=== PATIENT | female | born 1975 | race Caucasian/White ===

== ENCOUNTER 2024-04-08 21:04 | Emergency (ER) | payer BC, SELFPAY ==
--- NOTE | ~2024-04-08 | XR_ITS ---
EXAM: XR hand LT min 3V DATE: 04/08/2024 21:56 HISTORY: dog bite, r/o fb/fx. LACERATION TO 5TH METATARSAL . COMPARISON: None available. FINDINGS: Normal mineralization. No fracture or dislocation. No lytic or blastic lesion. Joint space s are maintained. No erosion or periosteal change. Soft tissues within normal limits. IMPRESSION: No acute osseous finding the left hand. No radiopaque foreign body detected. Reviewed, dictated and finalized at location K.
[2024-04-08 21:39] VITALS: BP 140/72; PULSE 68; RESP 15; TEMP 36.5; O2SAT 100
[2024-04-08] MEDS: TETANUS,DIPHTHERIA,AC PERTUSSIS ADULT (0.5 ML) BOOSTRIX IM (22:19)
[2024-04-08] MEDS: HYDROcodone/acetaminophen (*CRX) 5-325 MG TABLET 1 TAB PO (22:19)
[2024-04-08] MEDS: AMOXICILLIN/CLAVULANATE K 875-125 MG TAB 1 TABLET PO (22:19)
--- NOTE | 2024-04-08 22:34 | ED.WOUNDLAC ---
HPI - Wound/Laceration General Chief Complaint: Wound/Laceration Stated Complaint: dog bite Time Seen by Provider: 04/08/24 21:45 Source: patient Mode of arrival: ambulatory Limitations: no limitations History of Present Illness HPI narrative: Patient is a 48-year-old female who presents the ED with report of a dog bite to her left hand. Patient reports she was playing with her 4-month-old puppy in the yard when the dog ran at her and accidentally bit her left hand. She states it was not intentional. She sustained a laceration to left palmar surface, small puncture wound to her dorsal surface over her left hand. she reports tetanus is at least 5 years old, she is unsure of the last day. The dog is up-to-date on its vaccines, just recently received its rabies vaccine. Patient denies any other injuries. Denies numbness or tingling. Related Data Allergies Allergy/AdvReac Type Severity Reaction Status Date / Time No Known Allergies Allergy Verified 04/08/24 21:11 Review of Systems Review of Systems: CONSTITUTIONAL: Denies fever, chills, or sweats. MUSCULOSKELETAL: See HPI. NEUROLOGIC: Denies headache, dizziness, numbness, or weakness. All systems reviewed & are unremarkable except as noted in HPI and below Exam Narrative: GENERAL: Well appearing, thin, non-toxic, in no acute distress. HEAD: Normocephalic, atraumatic. RESPIRATORY: Airway patent, respirations nonlabored. CARDIOVASCULAR: Regular rate and rhythm without murmurs, rubs, or gallops. Radial pulses intact. MUSCULOSKELETAL: Moves all extremities. No gross deformities. SKIN: Warm, dry, normal color. 2cm laceration to palmar surface of L hand over area of 5th metacarpal. Fairly superficial, subcutaneous fat exposed. Small puncture wound to dorsal hand over 5th metacarpal. No active bleeding or drainage. Sensation intact. NEURO: A&O X3. Speech clear. Cranial nerves II-XII grossly intact. Steady gait. No ataxic movements. PSYCHIATRIC: Appropriate mood and affect. Normal interaction. Course Vital Signs Vital signs: Vital Signs Temperature 97.7 F 04/08/24 21:39 Pulse Rate 68 04/08/24 21:39 Respiratory Rate 15 04/08/24 21:39 Blood Pressure 140/72 04/08/24 21:39 Pulse Oximetry 100 04/08/24 21:39 Temperature 97.7 F 04/08/24 21:39 Pulse Rate 68 04/08/24 21:39 Respiratory Rate 15 04/08/24 21:39 Blood Pressure 140/72 04/08/24 21:39 Pulse Oximetry 100 04/08/24 21:39 Procedures Laceration Laceration 1: Date: 04/08/24 Time: 22:20 Site: hand Side (If applicable): left (palm) Size (cm): 2 Description: linear Depth: simple, single layer Local Anesthetic: lidocaine 1% Amount of anesthesia used (mL): 2 Pre-repair: wound explored, irrigated and irrigated extensively ====== Skin Level ====== Skin layer closed with: nylon Size (cm): 4-0 Number of sutures: 2 Technique: simple, interrupted ====== Subcutaneous Layer ====== ====== Muscle Layer ====== ====== Tendon Layer ====== MDM - Wound/Laceration MDM Narrative Medical decision making narrative: X-ray without evidence of fracture or foreign body. Laceration was thoroughly irrigated, loosely approximated with 2 sutures. Tetanus updated in the ED. Dog is UTD on its vaccines. Patient given first dose of augmentin in the ED, Rx sent to pharmacy. Patient given wound care instructions and reasons to return to the ED. Advised to monitor closely for signs of infection. Discharged in stable condition. Medical Records Attestation: I reviewed the patient's medical records. Imaging Data Attestation: I personally reviewed and interpreted this imaging study as follows: Radiologist's impression: ITS Impressions Hand X-Ray 04/08/24 22:31 IMPRESSION: No acute osseous finding the left hand. No radiopaque foreign body detected. Discharge Lilia
== END 2024-04-08 22:43 | disposition home or self-care (01) ==
PROVIDERS: Emergency Provider Physician Assistant
DX: S61.452A Open bite of left hand, initial encounter (principal); Z23 Encounter for immunization; W54.0XXA Bitten by dog, initial encounter
CPT/HCPCS: 12001; 73130; 90471; 90715; 99283; A9270

== ENCOUNTER 2024-12-30 15:51 | Emergency (ER) | payer BC, SELFPAY ==
[2024-12-30 16:13] VITALS: BP 130/84; PULSE 80; RESP 16; TEMP 36.9; O2SAT 100
--- NOTE | 2024-12-30 16:51 | ED.EAR ---
HPI - Ear Problem General Chief complaint: Ear Stated complaint: Left Ear Irritation Source: patient Mode of arrival: ambulatory Limitations: no limitations History of Present Illness HPI Narrative: 49-year-old female presented for complaint of left ear ?fluttering? sensation intermittently for 1 week. She states it started while she was in [place] and exposed to increased pollen. Reports frequent sneezing and blowing her nose. She started Zyrtec yesterday and reports moderate improvement. She denies associated dizziness, ear drainage, hearing changes or pain from the ear. MD Complaint: ear pain Related Data Home Medications ?Medication ?Instructions ?Recorded ?Confirmed ?Last Taken ?Type interferon beta-1a 30 mcg/0.5 mL 30 mcg IM WEEKLY 12/30/24 12/30/24 Unknown History intramuscular syringe kit (Avonex) Allergies Allergy/AdvReac Type Severity Reaction Status Date / Time No Known Allergies Allergy Verified 12/30/24 16:18 Review of Systems Review of Systems: CONSTITUTIONAL: Denies malaise, chills, or fever. EYES: Denies visual changes, redness, or discharge. ENT: Denies rhinorrhea, congestion, sinus pain, and sore throat. Reports ear fluttering CARDIOVASCULAR: Denies chest pain, palpitations, or edema. RESPIRATORY: Denies cough or dyspnea. GASTROINTESTINAL: Denies abdominal pain, nausea, vomiting, diarrhea SKIN: Denies rash MUSCULOSKELETAL: Denies myalgia. NEUROLOGIC: Denies headache. All systems reviewed & are unremarkable except as noted in HPI and below PMFSH Comments At time of signature, agree with nursing past medical, surgical, social and family history. There is no relevant family history pertinent to the presenting complaint Exam Narrative: GENERAL: Well-appearing, EYES: PERRLA, conjunctivae clear ENT: Nares clear. Mucous membranes moist. TMs pearly syed with dull light reflex and clear effusion bilaterally; no tragal tenderness. Oropharynx not erythematous without lesions. NECK: Supple. No lymphadenopathy CHEST: Clear to auscultation, breath sounds equal. HEART: Regular rate and rhythm. No murmur heard. SKIN: Warm, dry, no rash. NEURO: Alert and oriented x3. PSYCH: Normal mood and affect Course Course Emergency Course: Patient is aware of diagnosis, understands and agrees to treatment plan. Anticipatory guidance given. Patient agrees to follow-up as directed and is aware of reasons to seek care at the emergency department. Portions of this record may have been created with voice recognition software Level of Care: Express Care Visit Vital Signs Vital signs: Vital Signs Temperature 98.5 F 12/30/24 16:13 Pulse Rate 80 12/30/24 16:13 Respiratory Rate 16 12/30/24 16:13 Blood Pressure 130/84 12/30/24 16:13 Pulse Oximetry 100 12/30/24 16:13 Temperature 98.5 F 12/30/24 16:13 Pulse Rate 80 12/30/24 16:13 Respiratory Rate 16 12/30/24 16:13 Blood Pressure 130/84 12/30/24 16:13 Pulse Oximetry 100 12/30/24 16:13 Reviewed Medical Decision Making MDM Narrative Medical decision making narrative: Discussed physical exam findings consistent with bilateral serous otitis. Advised supportive measures and signs/symptoms to go to the ER. Patient is appropriate for outpatient treatment and follow-up. Differential Diagnosis Differential Diagnosis: Coronavirus, strep pharyngitis, allergic rhinitis, upper respiratory tract infection, sinusitis, rhinosinusitis, nasopharyngitis, viral pharyngitis, otitis media, otitis externa, eustachian tube dysfunction, foreign body, cerumen impaction. Vital Signs Vital Signs: Vital Signs Temperature 98.5 F 12/30/24 16:13 Pulse Rate 80 12/30/24 16:13 Respiratory Rate 16 12/30/24 16:13 Blood Pressure 130/84 12/30/24 16:13 Pulse Oximetry 100 12/30/24 16:13 Temperature 98.5 F 12/30/24 16:13 Pulse Rate 80 12/30/24 16:13 Respiratory Rate 16 12/30/24 16:13 Blood Pressure 130/84 12/30/24 16:13 Pulse Oximetry 100 12/30/24 16:13 Discharge Plan Discharge Clinical Impression: Acute serous otitis media Patient Disposition: Home Condition: Stable Instructions: Antibiotic Form, Fluid In The Ear (Serous Otitis Media) (ED) Additional Instructions: Recommendations: antihistamine such as Benadryl, Zyrtec or Shilpi for sinus congestion Flonase nasal spray, 1 spray in each nostril once daily until symptoms improve Please schedule a follow-up visit with your personal physician and/or ENT. If your symptoms persist, change or worsen significantly, go to the emergency department for further evaluation. Patient Language: Sami Prescriptions: No Action Avonex 30 mcg/0.5 mL syringe kit 30 mcg IM WEEKLY Follow-up/Referrals: PHYSICIAN,[employer]PERATOR [Primary Care Provider] - Time of Disposition: 17:01
== END 2024-12-30 17:05 | disposition home or self-care (01) ==
PROVIDERS: Emergency Provider Nurse Practitioner Family
DX: H65.03 Acute serous otitis media, bilateral (principal); G35 Multiple sclerosis
CPT/HCPCS: 99211; G0463